=== PATIENT | male | born 1960 | race Caucasian/White ===

== ENCOUNTER 2017-09-09 07:43 | Day surgery (SDC) | payer OTHER ==
[~2017-09-09] VITALS: Ht 162.6 cm; Wt 55.3 kg
[2017-09-09 08:26] VITALS: BP 196/97
[2017-09-09 09:37] VITALS: BP 165/94
== END 2017-09-09 10:15 | disposition home or self-care (01) ==
LOC: GI 07:43 → OR 08:30 → GI 10:15
PROVIDERS: Internal Medicine Gastroenterology
PROC: 0DJD8ZZ Inspection of Lower Intestinal Tract, Via Natural or Artificial Opening Endoscopic (ICD-10-PCS; principal; 2017-09-09 08:30)
DX: Z12.11 Encounter for screening for malignant neoplasm of colon (principal); K64.8 Other hemorrhoids
CPT/HCPCS: 45378; J1200; J1610; J2250; J2310; J3010; J3490

== ENCOUNTER 2017-09-21 10:33 | Inpatient (IN) | payer OTHER ==
[~2017-09-21] VITALS: Ht 162.6 cm; Wt 63.0 kg
[2017-09-21] MEDS ORDERED: HUMALOG100 U/ML SC (11:48)
[2017-09-21] MEDS ORDERED: FUROSEMIDE20 MG PO (11:48)
[2017-09-21 12:24] LABS: BASOPHIL % 0 % (0-2); PLATELET COUNT 597 x10^3mcL (130-400); RED CELL DISTRIBUTION WIDTH 15.1 % (11.5-14.5)
[2017-09-21 12:34] LABS: BILIRUBIN TOTAL 0.28 mg/dL (0.20-1.00); CALCIUM 7.9 mg/dL (8.5-10.1); CARBON DIOXIDE 15.1 mmol/L (21-32); POTASSIUM SERUM 5.2 mmol/L (3.5-5.1)
[2017-09-21 12:38] LABS: ALBUMIN 2.5 g/dL (3.4-5.0)
[2017-09-21 12:39] LABS: CREATININE SERUM 7.2 mg/dL (0.7-1.3)
[2017-09-21 13:21] LABS: microscopic required? YES; urine erythrocyte 2+ (NEGATIVE)
[2017-09-21 13:46] LABS: AMPHETAMINE QUAL UR NONE DETECTED (See below)
[2017-09-21 13:51] LABS: T3 TOTAL 0.44 ng/mL
[2017-09-21 13:55] LABS: CHOLESTEROL/HDL RATIO 4.9
[2017-09-21 14:05] LABS: FREE T4 0.98 ng/dL (0.76-1.46); FREE THYROXINE INDEX 2.3 ug/dL (1.4-4.5); T4(THYROXINE) 6.3 ug/dL (4.7-13.3)
[2017-09-21 14:16] VITALS: BP 118/60
[2017-09-21 16:00] VITALS: BP 147/73
[2017-09-21 16:43] LABS: PHOSPHOROUS 10.9 mg/dL (2.5-4.9)
[2017-09-21 19:29] LABS: CALCIUM 6.9 mg/dL (8.5-10.1); CARBON DIOXIDE 18.9 mmol/L (21-32); MAGNESIUM 2.1 mg/dL (1.8-2.4); PHOSPHOROUS 7.7 mg/dL (2.5-4.9); POTASSIUM SERUM 3.7 mmol/L (3.5-5.1)
[2017-09-21 19:30] VITALS: BP 151/58
[2017-09-21 19:35] LABS: CREATININE SERUM 6.6 mg/dL (0.7-1.3)
[2017-09-22] VITALS (8 sets, daily range): BP systolic 140–185; BP diastolic 68–94
[2017-09-22 00:47] LABS: CALCIUM 6.4 mg/dL (8.5-10.1); CARBON DIOXIDE 18.5 mmol/L (21-32); MAGNESIUM 1.8 mg/dL (1.8-2.4); PHOSPHOROUS 5.9 mg/dL (2.5-4.9); POTASSIUM SERUM 3.1 mmol/L (3.5-5.1)
[2017-09-22 00:52] LABS: CREATININE SERUM 5.7 mg/dL (0.7-1.3)
[2017-09-22 05:20] LABS: CALCIUM 7.4 mg/dL (8.5-10.1); CARBON DIOXIDE 20.1 mmol/L (21-32); MAGNESIUM 1.9 mg/dL (1.8-2.4); PHOSPHOROUS 5.5 mg/dL (2.5-4.9); POTASSIUM SERUM 3.5 mmol/L (3.5-5.1)
[2017-09-22 05:25] LABS: CREATININE SERUM 5.9 mg/dL (0.7-1.3)
[2017-09-22 08:37] LABS: CALCIUM 6.8 mg/dL (8.5-10.1); CARBON DIOXIDE 20.5 mmol/L (21-32); MAGNESIUM 1.8 mg/dL (1.8-2.4); PHOSPHOROUS 4.9 mg/dL (2.5-4.9); POTASSIUM SERUM 3.6 mmol/L (3.5-5.1)
[2017-09-22 08:42] LABS: CREATININE SERUM 5.7 mg/dL (0.7-1.3)
[2017-09-22 17:31] LABS: CALCIUM 6.5 mg/dL (8.5-10.1); CARBON DIOXIDE 18.2 mmol/L (21-32)
[2017-09-22 17:34] LABS: CREATININE SERUM 5.5 mg/dL (0.7-1.3)
[2017-09-23 04:26] VITALS: BP 141/76
[2017-09-23 07:42] LABS: CALCIUM 6.5 mg/dL (8.5-10.1); MAGNESIUM 1.7 mg/dL (1.8-2.4); POTASSIUM SERUM 3.2 mmol/L (3.5-5.1)
[2017-09-23 07:46] LABS: CREATININE SERUM 5.4 mg/dL (0.7-1.3)
[2017-09-23 08:00] VITALS: BP 123/70
[2017-09-23 08:06] LABS: BASOPHIL % 0.3 % (0-2); PLATELET COUNT 366 x10^3mcL (130-400)
[2017-09-23 12:05] VITALS: BP 180/93
[2017-09-23 14:42] VITALS: BP 118/68
[2017-09-23 16:17] VITALS: BP 131/69
[2017-09-23 19:40] VITALS: BP 163/79
[2017-09-24 05:56] VITALS: BP 165/82
[2017-09-24 06:41] LABS: BASOPHIL % 0.4 % (0-2); PLATELET COUNT 355 x10^3mcL (130-400)
[2017-09-24 06:49] LABS: RED CELL DISTRIBUTION WIDTH 14.9 % (11.5-14.5)
[2017-09-24 07:10] LABS: CALCIUM 7.7 mg/dL (8.5-10.1); CARBON DIOXIDE 18.4 mmol/L (21-32); MAGNESIUM 1.8 mg/dL (1.8-2.4); PHOSPHOROUS 3.8 mg/dL (2.5-4.9); POTASSIUM SERUM 3.7 mmol/L (3.5-5.1)
[2017-09-24 07:24] LABS: CREATININE SERUM 5.1 mg/dL (0.7-1.3)
[2017-09-24 08:54] VITALS: BP 147/87
[2017-09-24 13:22] VITALS: BP 138/76
[2017-09-24 17:38] VITALS: BP 132/74
[2017-09-24 21:50] VITALS: BP 188/91
[2017-09-24 22:32] VITALS: BP 154/79
[2017-09-25 05:45] VITALS: BP 1717/86
[2017-09-25 06:23] LABS: CREATININE UR 53.2 mg/dL
[2017-09-25 06:51] VITALS: BP 155/76
[2017-09-25 07:12] LABS: CALCIUM 7.7 mg/dL (8.5-10.1); CARBON DIOXIDE 15.5 mmol/L (21-32); MAGNESIUM 1.8 mg/dL (1.8-2.4); PHOSPHOROUS 4.1 mg/dL (2.5-4.9); POTASSIUM SERUM 4.5 mmol/L (3.5-5.1)
[2017-09-25 07:15] LABS: CREATININE SERUM 4.8 mg/dL (0.7-1.3)
[2017-09-25 07:44] LABS: BASOPHIL % 0.1 % (0-2); PLATELET COUNT 313 x10^3mcL (130-400)
[2017-09-25 07:45] LABS: RED CELL DISTRIBUTION WIDTH 15.1 % (11.5-14.5)
[2017-09-25 09:04] VITALS: BP 162/87
[2017-09-25] MEDS ORDERED: APR10 PO (11:57)
[2017-09-25] MEDS ORDERED: NOR5 PO (11:58)
[2017-09-25] MEDS ORDERED: HUMALOG100 U/ML SC (12:04)
[2017-09-25 13:24] VITALS: BP 148/67
[2017-09-25] MEDS ORDERED: LEVEMIR100 U/M1 SQ (13:43)
[2017-09-25] MEDS ORDERED: TRA100 PO (13:43)
== END 2017-09-25 17:35 | disposition home or self-care (01) | DRG 469 ==
LOC: ED 10:33 → IC 12:51 → DU 09-22 14:48
PROVIDERS: Emergency Medicine; Family Medicine; Internal Medicine; Internal Medicine Nephrology
PROC: 02HV33Z Insertion of Infusion Device into Superior Vena Cava, Percutaneous Approach (ICD-10-PCS; principal; 2017-09-21)
PROC: B548ZZA Ultrasonography of Superior Vena Cava, Guidance (ICD-10-PCS; 2017-09-21)
DX: N17.0 Acute kidney failure with tubular necrosis (principal); E11.00 Type 2 diabetes mellitus with hyperosmolarity without nonketotic hyperglycemic-hyperosmolar coma (NKHHC); E43 Unspecified severe protein-calorie malnutrition; E11.21 Type 2 diabetes mellitus with diabetic nephropathy; E11.10 Type 2 diabetes mellitus with ketoacidosis without coma; E83.39 Other disorders of phosphorus metabolism; E11.65 Type 2 diabetes mellitus with hyperglycemia; E87.5 Hyperkalemia; E11.22 Type 2 diabetes mellitus with diabetic chronic kidney disease; D63.1 Anemia in chronic kidney disease; E78.5 Hyperlipidemia, unspecified; N18.5 Chronic kidney disease, stage 5; I12.0 Hypertensive chronic kidney disease with stage 5 chronic kidney disease or end stage renal disease; E87.1 Hypo-osmolality and hyponatremia; K52.9 Noninfective gastroenteritis and colitis, unspecified; E78.2 Mixed hyperlipidemia; E87.8 Other disorders of electrolyte and fluid balance, not elsewhere classified; Z79.4 Long term (current) use of insulin
CPT/HCPCS: 36556; 36600; 82962; 83880; 84439; 86580; 87046; 87046-59; 90732; 94150; G0480; J1642; J1815; J1940; J1956; J2405; J2765; J3490; J7030; Q0092

== ENCOUNTER 2017-10-09 19:05 | Inpatient (IN) | payer OTHER ==
[~2017-10-09] VITALS: Ht 162.6 cm; Wt 60.4 kg
[~2017-10-09 19:05] MED LIST: APR10 PO; FUROSEMIDE20 MG PO; HUMALOG100 U/ML SC; LEVEMIR100 U/M1 SQ; NOR5 PO; TRA100 PO
[2017-10-09 20:51] LABS: UA SPECIFIC GRAVITY 1.025 (1.005-1.035); microscopic required? YES; urine erythrocyte 1+ (NEGATIVE)
[2017-10-09 20:59] LABS: BASOPHIL % 0.9 % (0-2); RED BLOOD CELLS 2.44 M/mm3 (4.52-5.90)
[2017-10-09 21:02] LABS: BILIRUBIN TOTAL 0.2 mg/dL (0.20-1.00); CALCIUM 7.9 mg/dL (8.5-10.1); CARBON DIOXIDE 20.4 mmol/L (21-32); POTASSIUM SERUM 4.1 mmol/L (3.5-5.1); TOTAL PROTEIN, SERUM 6.3 g/dL (6.4-8.2)
[2017-10-09 21:04] LABS: PLATELET COUNT 638 x10^3mcL (130-400); RED CELL DISTRIBUTION WIDTH 16.4 % (11.5-14.5)
[2017-10-09 21:10] LABS: ALBUMIN 2.2 g/dL (3.4-5.0)
[2017-10-09 21:12] LABS: CREATININE SERUM 5.2 mg/dL (0.7-1.3)
[2017-10-09 21:34] LABS: CK-MB 2.4 ng/mL (0-3.6)
[2017-10-09] MEDS ORDERED: LASIX20 MG PO (21:39)
[2017-10-09] MEDS ORDERED: LANTUS SOLOS100 U/M1 (21:40)
[2017-10-09] MEDS ORDERED: NATURAL IRON65 MG (21:40)
[2017-10-09 22:05] LABS: PHOSPHOROUS 4.7 mg/dL (2.5-4.9)
[2017-10-09 22:06] LABS: AMPHETAMINE QUAL UR NONE DETECTED (See below)
[2017-10-09 22:09] LABS: CHOLESTEROL/HDL RATIO 6.2
[2017-10-09 22:14] LABS: T3 TOTAL 1.09 ng/mL
[2017-10-09 22:15] LABS: FREE T4 0.96 ng/dL (0.76-1.46); FREE THYROXINE INDEX 2.5 ug/dL (1.4-4.5); T4(THYROXINE) 7.4 ug/dL (4.7-13.3)
[2017-10-09 22:47] VITALS: BP 190/94
[2017-10-09 22:51] VITALS: Ht 162.6 cm; Wt 60.4 kg
[2017-10-09 23:01] VITALS: BP 182/91
[2017-10-10 02:06] VITALS: BP 153/81
[2017-10-10 05:17] VITALS: BP 154/76
[2017-10-10 06:30] LABS: BASOPHIL % 0.5 % (0-2)
[2017-10-10 06:45] LABS: CALCIUM 7.5 mg/dL (8.5-10.1); CARBON DIOXIDE 19.6 mmol/L (21-32); POTASSIUM SERUM 4.1 mmol/L (3.5-5.1)
[2017-10-10 06:48] LABS: CREATININE SERUM 5.1 mg/dL (0.7-1.3)
[2017-10-10 07:04] LABS: PLATELET COUNT 517 x10^3mcL (130-400); RED CELL DISTRIBUTION WIDTH 16.5 % (11.5-14.5)
[2017-10-10 07:14] LABS: rbc morphology (normal/abnorm) ABNORMAL (NORMAL)
[2017-10-10 09:15] VITALS: BP 158/81
[2017-10-10 11:53] VITALS: BP 159/82
[2017-10-10 17:34] VITALS: BP 167/82
[2017-10-10 20:50] VITALS: BP 142/78
[2017-10-10 22:43] LABS: BASOPHIL % 0.3 % (0-2)
[2017-10-10 22:53] LABS: PLATELET COUNT 460 x10^3mcL (130-400)
[2017-10-11 06:06] VITALS: BP 152/78
[2017-10-11 09:14] VITALS: BP 129/68
[2017-10-11 09:18] VITALS: BP 129/68
[2017-10-11] MEDS ORDERED: TRA100 PO (10:22)
[2017-10-11] MEDS ORDERED: HUMALOG100 U/ML SC (10:22)
[2017-10-11] MEDS ORDERED: LASIX40 MG PO (10:22)
[2017-10-11] MEDS ORDERED: LEVEMIR100 U/M1 SC (10:22)
== END 2017-10-11 12:05 | disposition home or self-care (01) | DRG 469 ==
LOC: ED 19:05 → MU 21:37 → DU 21:37
PROVIDERS: Emergency Medicine; Family Medicine
PROC: 30233N1 Transfusion of Nonautologous Red Blood Cells into Peripheral Vein, Percutaneous Approach (ICD-10-PCS; principal; 2017-10-10)
DX: N17.0 Acute kidney failure with tubular necrosis (principal); E43 Unspecified severe protein-calorie malnutrition; E11.21 Type 2 diabetes mellitus with diabetic nephropathy; E11.22 Type 2 diabetes mellitus with diabetic chronic kidney disease; E11.65 Type 2 diabetes mellitus with hyperglycemia; N18.5 Chronic kidney disease, stage 5; E78.5 Hyperlipidemia, unspecified; D64.9 Anemia, unspecified; I12.0 Hypertensive chronic kidney disease with stage 5 chronic kidney disease or end stage renal disease; R80.9 Proteinuria, unspecified; E83.51 Hypocalcemia; E87.2 Acidosis; D63.1 Anemia in chronic kidney disease; Z68.23 Body mass index [BMI] 23.0-23.9, adult; Z79.4 Long term (current) use of insulin; Z79.899 Other long term (current) drug therapy
CPT/HCPCS: 82962; 83880; 84439; 94150; J0885-EC; J1815; J3490; J7030; J7040; P9016; Q0092; Q0163

== ENCOUNTER 2017-12-24 16:44 | Emergency (ER) | payer OTHER ==
[~2017-12-24] VITALS: Ht 162.6 cm; Wt 48.2 kg
[~2017-12-24 16:44] MED LIST changes: +LANTUS SOLOS100 U/M1; +LASIX20 MG PO; +LASIX40 MG PO; +LEVEMIR100 U/M1 SC; +NATURAL IRON65 MG
[2017-12-24 16:47] VITALS: Ht 162.6 cm; Wt 48.2 kg
[2017-12-24 17:49] LABS: BASOPHIL % 0.4 % (0-2)
[2017-12-24 17:50] LABS: PLATELET COUNT 408 x10^3mcL (130-400); RED CELL DISTRIBUTION WIDTH 17.9 % (11.5-14.5)
[2017-12-24 18:00] LABS: BILIRUBIN TOTAL 0.4 mg/dL (0.20-1.00); CALCIUM 8.3 mg/dL (8.5-10.1); CARBON DIOXIDE 29.6 mmol/L (21-32); POTASSIUM SERUM 4.1 mmol/L (3.5-5.1); TOTAL PROTEIN, SERUM 6.7 g/dL (6.4-8.2)
[2017-12-24 18:02] LABS: ALBUMIN 2.5 g/dL (3.4-5.0)
[2017-12-24 18:03] LABS: CREATININE SERUM 6.8 mg/dL (0.7-1.3)
[2017-12-24 20:34] VITALS: BP 134/79
== END 2017-12-24 20:34 | disposition home or self-care (01) ==
LOC: ED 16:44
PROVIDERS: Emergency Medicine
DX: R10.9 Unspecified abdominal pain (principal); E78.00 Pure hypercholesterolemia, unspecified; E11.22 Type 2 diabetes mellitus with diabetic chronic kidney disease; I12.9 Hypertensive chronic kidney disease with stage 1 through stage 4 chronic kidney disease, or unspecified chronic kidney disease; N18.9 Chronic kidney disease, unspecified
CPT/HCPCS: 82962; J1815; J2060; J2405; J3490; J7040; Q0092